=== PATIENT | female | born 1970 | race Caucasian/White ===

== ENCOUNTER → 2016-03-24 | Outpatient (REF) | payer OTHER ==
[~2016-03-24] MED LIST: LEXA1TAB PO; PRIL40CA PO; albuterol inhaler INH; flonase; iron OR
== END ==
LOC: M LAB REF 13:19
PROVIDERS: ATTEND Advanced Practice Midwife
DX: R30.0 Dysuria (principal)

== ENCOUNTER 2019-03-28 08:26 | Day surgery (SDC) | payer OTHER ==
[~2019-03-28] VITALS: Ht 154.9 cm; Wt 67.1 kg
[~2019-03-28 08:26] MED LIST changes: +ALL10TAB29 PO; +ESOM20CA25 PO; +FLON1SPR; +NS 1,000 ML IV ONE; +VENTAER INH
[2019-03-28] MEDS ORDERED: propofoL 200 MG/20 ML VIAL As Ordered ONE ×2 (09:02→09:17)
[2019-03-28] MEDS ORDERED: LIDOCAINE 2% INJ 100 MG/5 ML SDV (FOR ANES.) As Ordered ONE (09:02)
--- NOTE | 2019-03-28 09:34 | ROOR ---
Patient Name: Nichole Lea Procedure Date: 03/28/2019 9:13 AM Date of : 1970 Age: 48 Room: [facility] Gender: Female Note Status: Finalized Procedure: Colonoscopy Indications: Screening for colorectal malignant neoplasm Providers: Jere Arthur Jr, MD Referring MD: Gissel Mclean NP Requesting Provider: Medicines: Propofol per Anesthesia Complications: No immediate complications. Procedure: Pre-Anesthesia Assessment: - Prior to the procedure, a History and Physical was performed, and patient medications and allergies were reviewed. The patient is competent. The risks and benefits of the procedure and the sedation options and risks were discussed with the patient. All questions were answered and informed consent was obtained. Patient identification and proposed procedure were verified by the physician and the nurse in the pre-procedure area and in the procedure room. Mental Status Examination: alert and oriented. Airway Examination: normal oropharyngeal airway and neck mobility. Respiratory Examination: clear to auscultation. CV Examination: normal. ASA Grade Assessment: II - A patient with mild systemic disease. After reviewing the risks and benefits, the patient was deemed in satisfactory condition to undergo the procedure. The anesthesia plan was to use moderate sedation / analgesia (conscious sedation). Immediately prior to administration of medications, the patient was re-assessed for adequacy to receive sedatives. The heart rate, respiratory rate, oxygen saturations, blood pressure, adequacy of pulmonary ventilation, and response to care were monitored throughout the procedure. The physical status of the patient was re-assessed after the procedure. The Colonoscope was introduced through the anus and advanced to the cecum, identified by appendiceal orifice and ileocecal valve. The colonoscopy was performed without difficulty. The patient tolerated the procedure well. The quality of the bowel preparation was adequate. Findings: The rectum, recto-sigmoid colon, sigmoid colon, descending colon, transverse colon, ascending colon, cecum, appendiceal orifice and ileocecal valve appeared normal. Impression: - The rectum, recto-sigmoid colon, sigmoid colon, descending colon, transverse colon, ascending colon, cecum, appendiceal orifice and ileocecal valve are normal. - No specimens collected. Recommendation: - Discharge patient to home (ambulatory). - Repeat colonoscopy in 10 years for screening purposes. Jere Arthur MD Jere Arthur Jr, MD 03/28/2019 9:34:21 AM Electronically signed by Jere Arthur Jr, MD Number of Addenda: 0 Note Initiated On: 03/28/2019 9:13 AM Estimated Blood Loss: Estimated blood loss: none.
[2019-03-28 10:00] VITALS: BP 115/62
== END 2019-03-28 10:09 | disposition home or self-care (01) ==
LOC: M OPP 08:26
PROVIDERS: ATTEND Surgery
DX: Z12.11 Encounter for screening for malignant neoplasm of colon (principal); F17.210 Nicotine dependence, cigarettes, uncomplicated; Z79.899 Other long term (current) drug therapy; Z88.2 Allergy status to sulfonamides; Z88.5 Allergy status to narcotic agent; Z91.013 Allergy to seafood; Z91.018 Allergy to other foods

== ENCOUNTER 2024-02-16 08:57 | Day surgery (SDC) | payer OTHER ==
[~2024-02-16] VITALS: Ht 154.9 cm; Wt 64.0 kg
[~2024-02-16 08:57] MED LIST changes: +ALBU2.5V10 INH; -ALL10TAB29 PO; +ATOR1TAB19 PO; +CETI-24 PO; +ESOM40CA35 PO; +LIDOCAINE 2% 100MG/5ML SDV (FOR ANES.) As Ordered ONE; -NS 1,000 ML IV ONE; +XALA0.007 OU; +fentaNYL 100 MCG/2 ML INJECTION As Ordered ONE; +propofoL 500 MG/50 ML VIAL As Ordered ONE
[2024-02-16 10:34] VITALS: TEMP 97.9
[2024-02-16 10:55] VITALS: BP 111/71; O2SAT 98
== END 2024-02-16 11:35 | disposition home or self-care (01) ==
LOC: M OPP 08:57
PROVIDERS: ATTEND Surgery
DX: D50.9 Iron deficiency anemia, unspecified (principal); K44.9 Diaphragmatic hernia without obstruction or gangrene; K21.9 Gastro-esophageal reflux disease without esophagitis; Z80.0 Family history of malignant neoplasm of digestive organs; J45.909 Unspecified asthma, uncomplicated; E78.00 Pure hypercholesterolemia, unspecified; Z79.899 Other long term (current) drug therapy; F17.210 Nicotine dependence, cigarettes, uncomplicated; Z90.710 Acquired absence of both cervix and uterus; Z88.2 Allergy status to sulfonamides; Z88.5 Allergy status to narcotic agent; Z90.89 Acquired absence of other organs
CPT/HCPCS: 43235; 45378; J3010